=== PATIENT | female | born 1990 | race Two or more races ===

== ENCOUNTER 2025-07-10 11:11 | Emergency (ER) | payer OTHER ==
[~2025-07-10] VITALS: Ht 149.9 cm; Wt 68.0 kg
[2025-07-10] MEDS ORDERED: CEPH-570 PO (11:17)
[2025-07-10] MEDS ORDERED: TERB250T53 PO (11:17)
[2025-07-10] MEDS ORDERED: DOXY100C2 PO (11:17)
[2025-07-10 11:20] VITALS: BP 124/72; TEMP 98.2
[2025-07-10 11:28] VITALS: O2SAT 97
== END 2025-07-10 11:30 | disposition home or self-care (01) ==
LOC: ER 11:18
DX: B35.0 Tinea barbae and tinea capitis (principal); L02.32 Furuncle of buttock; Z59.00 Homelessness unspecified; Z88.5 Allergy status to narcotic agent; Z91.040 Latex allergy status
CPT/HCPCS: 99283; A6403